=== PATIENT | female | born 1960 | race Caucasian/White ===

== ENCOUNTER 2018-03-12 23:51 | Emergency (ER) | payer MEDICARE, MEDICAID ==
[~2018-03-12] VITALS: Ht 162.6 cm; Wt 76.0 kg
[~2018-03-12 23:51] MED LIST: IBUP-1984 PO
[2018-03-12 23:57] VITALS: BP 152/93
[2018-03-13] MEDS ORDERED: ALBU8HFA PO (01:00)
[2018-03-13] MEDS ORDERED: GUAI473S11 PO (01:00)
[2018-03-13] MEDS ORDERED: AZIT-63 PO (01:00)
== END 2018-03-13 01:32 | disposition home or self-care (01) ==
LOC: ER 23:51
DX: J40 Bronchitis, not specified as acute or chronic (principal); J02.9 Acute pharyngitis, unspecified; G89.29 Other chronic pain; F17.200 Nicotine dependence, unspecified, uncomplicated; Z90.710 Acquired absence of both cervix and uterus; Z98.890 Other specified postprocedural states; Z88.8 Allergy status to other drugs, medicaments and biological substances; Z79.2 Long term (current) use of antibiotics; Z79.1 Long term (current) use of non-steroidal anti-inflammatories (NSAID); Z79.899 Other long term (current) drug therapy
CPT/HCPCS: 99283

== ENCOUNTER 2018-04-17 18:23 | Emergency (ER) | payer MEDICARE, MEDICAID ==
[~2018-04-17] VITALS: Ht 565.3 cm; Wt 71.0 kg
[2018-04-17 18:47] VITALS: BP 136/81
[2018-04-17] MEDS ORDERED: ACET1TAB12 PO (20:45)
[2018-04-17] MEDS ORDERED: AMOX500C2 PO (20:45)
== END 2018-04-17 20:58 | disposition home or self-care (01) ==
LOC: ER 18:24
DX: K08.89 Other specified disorders of teeth and supporting structures (principal); G89.29 Other chronic pain; Z90.710 Acquired absence of both cervix and uterus; Z88.8 Allergy status to other drugs, medicaments and biological substances
CPT/HCPCS: 99283